=== PATIENT | female | born 2000 | race Caucasian/White ===

== ENCOUNTER 2022-11-15 16:32 | Emergency (ER) | payer MEDICAID, SELFPAY ==
[2022-11-15 16:34] VITALS: BP 119/74; PULSE 81; RESP 16; TEMP 36.1; O2SAT 100; BMI 20.9
[2022-11-15] MEDS: LORazepam 0.5 MG Tablet 0.25 MG PO (17:49)
--- NOTE | 2022-11-15 17:56 | EX.ED.DYSGE1 ---
HPI <JOSIE Galloway - Last Filed: 11/15/22 19:32> History of Present Illness Chief Complaint: Depression Narrative Narrative: Patient is a 22-year-old female with history of depression who has been dealing with depression and suicidal ideation for multiple years. Patient states in the month of October, she went back to school, and developed multiple stressors. She has been trying to find a medication regimen that is working for her. She states that she is very sensitive. She is been trying Paxil and had significant reaction and is now off all medications. Last evening while she was sleeping, she had multiple episodes where she would wake up with suicidal ideation however she would go back to bed. Patient at this time states that she does not want to , she does not want to be admitted, she feels safe at home however she was just overwhelmed did not know what to do. Her is at bedside and agrees that she is safe. Patient denies any other injury [facility] <JOSIE Galloway - Last Filed: 11/15/22 19:32> [facility] Medical History (Updated 11/15/22 @ 19:29 by JOSIE Galloway) PTSD (post-traumatic stress disorder) Home Medications lorazepam 0.5 mg tablet (Ativan) 0.5 mg PO TID PRN anxiety #10 tabs 11/15/22 [Rx Last Taken Unknown] Allergy/AdvReac Type Severity Reaction Status Date / Time SSRI Allergy Intermediate Other Uncoded 11/15/22 16:33 Social History Smoking Status: Never smoker ROS <JOSIE Galloway - Last Filed: 11/15/22 19:32> ROS ED ROS Narrative Constitutional: Negative for fever, chills, weight loss, weakness Eyes: Negative for vision loss, vision change, double vision ENT: Negative for any sore throat, ear pain, congestion Cardiovascular: Negative for any chest pain, tightness, palpitations Respiratory: Negative for any cough, sputum production, hemoptysis, dyspnea, dyspnea on exertion, orthopnea Gastrointestinal: Negative for any abdominal pain, nausea, vomiting, diarrhea, constipation, blood in stool, blood in vomit : Negative for any urinary frequency, dysuria, retention, blood in urine Muscle skeletal: Negative for any muscle joint pain, stiffness, myalgias, arthralgias, neck pain, back pain Neurological: Negative for any headache, syncope, numbness or tingling, dizziness Skin: Negative for any rashes, lumps, itching, abrasions, lacerations Psychiatric: Negative for any homicidal ideation. Positive for stress, anxiety, suicidal thoughts that passed quickly Hematologic: Negative for any easy bruising, excessive bruising, easy bleeding Allergies: Negative for any eczema, hives, rash EXAM <JOSIE Galloway - Last Filed: 11/15/22 19:32> Physical Exam Narrative Exam Narrative: Vital signs reviewed. I spoke with the patient at length, patient does appear anxious however she is alert and orient x4. Patient is aware, polite, and in no distress. She does appear to be anxious however her thoughts are linear and she has a good sense of where she is at. She does not want any admission, I did offer her crisis that she declined. She states that she just felt overwhelmed and needed to come to a safe spot. Patient would like to try something for anxiety. HEET: Head normocephalic atraumatic, TMs clear bilaterally. Posterior pharynx is clear, moist mucous membranes. Nares clear bilaterally. Neck: Supple with no lymphadenopathy or tenderness. No signs of meningismus, negative jolt sign. Cardiac: Regular rate and rhythm no murmurs gallops or rubs, equal peripheral pulses bilaterally. Respiratory: Lungs clear to auscultation bilaterally. No chest tenderness. Abdomen: Soft, nontender, nondistended. No abdominal bruit or pulsatile masses. No hepatosplenomegaly Extremities: No peripheral edema, no signs of gross trauma or deformity. Active full range of motion of all extremities. Neuro: Cranial nerves II through XII intact, no focal neurological deficits. Skin: Clean dry and intact with no rash, purpura, petechiae, vesicles or pustules. Backs/flank: No CVA tenderness, no midline spinal tenderness, no deformity. Psych: Normal mood and affect. No SI, HI or acute psychosis. Const Vital Signs: 11/15/22 16:34 Temperature 96.9 F L Temperature Source Temporal Pulse Rate 81 Respiratory Rate 16 Blood Pressure 119/74 Blood Pressure Mean 89 Pulse Ox 100 Oxygen Delivery Method Room Air <Dr. Igor Jones MD - Last Filed: 11/15/22 20:53> Physical Exam Const Vital Signs: 11/15/22 16:34 Temperature 96.9 F L Temperature Source Temporal Pulse Rate 81 Respiratory Rate 16 Blood Pressure 119/74 Blood Pressure Mean 89 Pulse Ox 100 Oxygen Delivery Method Room Air [facility] <Cleve BurnsJOSIE gonzalez - Last Filed: 11/15/22 19:32> [facility] Treatment and Re-Evaluation :: Patient appears generally well, patient appears nontoxic, vital signs are stable. Patient presents the emergency department for anxiety, depression as well as some suicidal thoughts that came to her while she was sleeping last evening. On initial examination, patient is not suicidal or homicidal. Patient is acting appropriate. She does appear slightly anxious. She will receive 0.25mg of Ativan. Patient was offered to talk to crisis however she states that she does not need to, she does not believe that she is that severe. On reassessment, the patient was doing well. He states the Ativan did help slightly. At this time, there is no evidence suspect the patient suicidal, homicidal. The patient and the patient's feel the patient safe for discharge. They do have follow-up outpatient with psychology as well as her PCP. Patient will be given a short course of Ativan. She will follow-up outpatient <Dr. Igor Jones MD - Last Filed: 11/15/22 20:53> [facility] Narrative Medical decision making narrative: I have personally performed a face to face assessment of the patient and have reviewed the SILVINO Note. I performed a substantive portion of the visit including all aspects of the following. My ricketts findings include: History is remarkable for history of anxiety and depression. Recent she has been waking up feeling anxious with depression and suicidal thoughts. She has no intent on acting on her suicidal thoughts. This is occurred over the past several days to weeks. She is present on no medicine because she has had reaction to multiple antidepressants. Presently she denies headache, visual, ocular auditory symptoms. She denies respiratory or cardiac symptoms. She denies GI symptoms. She denies urologic symptoms. She denies neurologic symptoms. Exam is unremarkable. HEENT exam is unremarkable. Heart lung exam is unremarkable. She is alert oriented x3. She denies homicidal/suicidal thoughts. Affect is flat and mood is slightly depressed. Medical Decision Making suspect there is an anxiety component. She is been instructed follow-up with her therapist and psychiatrist. Has an appointment with her psychiatrist later this month. Other additions or changes: Plan is to discharge with prescription for Ativan. Discharge Plan Triage Chief Complaint: Depression ED Midlevel Provider: Cleve Phillips ED Provider: Igor Jones Dx/Rx/DC Orders Clinical Impression: Anxiety, Depression Instructions: Depression SCI, Depression and the Brain's ..., Anxiety Disorders Tx Prescriptions: New lorazepam [Ativan] 0.5 mg tablet 0.5 mg PO TID PRN (Reason: anxiety) Qty: 10 0RF Rx Instructions: You may take half a tab of 0.5 mg. So a total of 0.25 mg. Primary Care Provider: Ashleigh Stafford NP Referrals: Ashleigh Stafford GED TUTOR, [facility] [Primary Care Provider] - Activity Restrictions/Additional Instructions: Please continue to follow-up with your PCP. Ensure that you follow-up with your psychologist. Again do not give up, there are multiple treatment options. You are doing well. Continue doing what you are doing. Use family and close people around you to help. Disposition Disposition: Home, Self Care Discharge Date/Time: 11/15/22 19:42
== END 2022-11-15 19:42 | disposition home or self-care (01) ==
PROVIDERS: Emergency Provider Emergency Medicine; PCP Registered Nurse; Visit Provider Emergency Medicine
DX: F32.A Depression, unspecified (principal); F41.9 Anxiety disorder, unspecified
CPT/HCPCS: 99283

== ENCOUNTER 2022-12-01 14:36 | Emergency (ER) | payer MEDICAID, SELFPAY ==
[2022-12-01 14:38] VITALS: BP 116/74; PULSE 78; RESP 14; TEMP 36.7; O2SAT 98; BMI 20.7
--- NOTE | 2022-12-01 15:14 | EX.ED.VIS.PS ---
HPI HPI - Psych History of Present Illness Chief Complaint: Mental Health Informant: patient Narrative Narrative: Patient was referred by her counselor for some thoughts about suicide. Patient has been seeing this Same counselor since about eighth grade. She has a history of depression and anxiety. She went back to school in October. It caused significant anxiety and stress so she had stopped. She has been on hydroxyzine as needed. 2 weeks ago she started bupropion. It caused her to be a little tired flulike symptoms and weight loss. But she had some suicidal thoughts before starting that med. They have not worsened. She has had thoughts that she could walk on train tracks near her house or take meds. But she has not acted on this. She has had thoughts in the past also. She does have a positive outlook for the future. 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 She is very busy and active. She still has thoughts of trying to go back to school in the future but understands she needs to get the anxiety and her symptoms calm down quite a bit. She has no physical complaints as of now. She saw a psychiatrist once in her life. Meds were prescribed that made her extremely tired and she did not continue with that arrangement. The Wellbutrin was prescribed by her primary physician. [facility] Medical History Anxiety Depression PTSD (post-traumatic stress disorder) Home Medications bupropion HCl 75 mg tablet mg PO 12/01/22 [History Last Taken 12/01/22] hydroxyzine HCl 10 mg tablet 10 mg PO PRN 12/01/22 [History Last Taken Unknown] Allergy/AdvReac Type Severity Reaction Status Date / Time SSRI Allergy Intermediate Other Uncoded 11/15/22 16:33 Social History Smoking Status: Never smoker ROS ROS ED ROS Narrative A complete review of systems was performed and is negative except as documented in the history of present illness. Some specific details below. Constitutional: No recent fevers or chills. She had some malaise when starting bupropion but that has improved EYE: No visual complaints ENT: No difficulty swallowing. CV: No chest pain or palpitations. Respiratory: No dyspnea. No hemoptysis. No difficulty taking breaths. GI: No nausea vomiting or diarrhea. She did have some weight loss with bupropion initiation. : No frequency dysuria or hematuria. Musculoskeletal: No recent trauma. No pains. Skin: No rash. Nondiaphoretic. Neuro: No weakness or numbness. Endocrine: No polyuria or polydipsia. Psychiatry: See history of present illness. EXAM Physical Exam Narrative Exam Narrative: Patient awake alert no acute distress. HEENT shows no trauma mucous membranes are moist Neck is free range of motion. Cardiorespiratory shows normal pulse easy breathing. Saturations are normal at 98% on room air. Abdomen is not distended no pain or tenderness. Extremities show no rash or trauma. Neurologically she is awake she is alert she is appropriate. Psychiatry: She does not have a flat or depressed affect. She makes good eye contact. She is neatly dressed and groomed. She does seem to have a positive outlook for the future. Const Vital Signs: 12/01/22 14:38 12/01/22 19:12 12/01/22 19:59 Temperature 98.1 F Temperature Source Temporal Pulse Rate 78 79 79 Respiratory Rate 14 18 18 Blood Pressure 116/74 107/69 Blood Pressure Mean 88 81 Pulse Ox 98 100 100 Oxygen Delivery Method Room Air Room Air 12/01/22 20:00 12/01/22 21:22 Temperature Temperature Source Pulse Rate Respiratory Rate 16 16 Blood Pressure Blood Pressure Mean Pulse Ox Oxygen Delivery Method MDM MDM MDM Narrative Medical decision making narrative: Further discussion with the patient, her , social work we have agreed that patient would be served best with stay in the hospital. She has been seeing her counselor as an outpatient but has gotten worse. She has gotten meds and a visit here to the emergency department but has still worsened. She has gotten meds from her primary physician and has still worsened. At this point she is really failed outpatient therapy and does not feel that she is safe to make a safety plan. Patient CBC shows no acute abnormality. Patient's electrolytes are normal other than minimally low potassium at 3.3 that will self-correct. Glucose is also mildly up at 144. This just needs to be rechecked in the future but does not need acute treatment. Patient's alcohol level is negative. Patient's is negative. Patient's urine toxicology screen is negative. Patient is medically cleared for psychiatric evaluation and admission. Patient has been accepted at [facility] by Dr. Arceo Lab Data Attestation: I reviewed the patient's lab results. Labs: Laboratory Results - last 24 hr 12/01/22 16:45 WBC 6.9 RBC 4.42 Hgb 13.4 Hct 40.2 MCV 91.0 MCH 30.3 MCHC 33.3 RDW Std Deviation 42.4 RDW Coeff of Samaria 12.7 Plt Count 331 MPV 10.1 Immature Gran % (Auto) 0.400 Neut % (Auto) 61.0 Lymph % (Auto) 29.1 Juncos % (Auto) 6.9 Eos % (Auto) 2.0 Baso % (Auto) 0.6 Absolute Neuts (auto) 4.2 Absolute Lymphs (auto) 2.01 Nucleated RBC % 0 Sodium 139 Potassium 3.3 L Chloride 108 H Carbon Dioxide 24.0 Anion Gap 7 BUN 12 Creatinine 0.99 Estim Creat Clear Calc 79.64 Est GFR (MDRD) Af Amer 90 Est GFR (MDRD) Non-Af 74 BUN/Creatinine Ratio 12.1 Glucose 144 H Calcium 9.1 Serum , Qual NEGATIVE Urine Opiates Screen NEGATIVE Urine Methadone Screen NEGATIVE Ur Barbiturates Screen NEGATIVE Ur Phencyclidine Scrn NEGATIVE Ur Amphetamines Screen NEGATIVE MDMA (Ecstasy) Screen NEGATIVE U Benzodiazepines Scrn NEGATIVE Urine Cocaine Screen NEGATIVE U Cannabinoids Screen NEGATIVE Ur Drug Screen Comment Ethyl Alcohol < 3.0 Discharge Plan Triage Chief Complaint: Mental Health ED Provider: Bishop Black Dx/Rx/DC Orders Clinical Impression: History of anxiety, Suicide ideation, Failure of outpatient treatment Prescriptions: No Action bupropion HCl 75 mg tablet PO Patient Comments: take 1 tablet by mouth twice a day hydroxyzine HCl 10 mg tablet 10 mg PO PRN Patient Comments: take 1 tablet by mouth every 8 hours if needed for anxiety Primary Care Provider: Ashleigh Stafford NP Referrals: Ashleigh Stafford NP, [facility] [Primary Care Provider] - Disposition Disposition: Psychiatric Hospital or Unit Discharge Location: [facility] Discharge Date/Time: 12/01/22 21:34
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
[2022-12-01 17:02] LABS: Absolute Lymphocyte Count 2.01 X10^3/uL (0.83-4.51); Absolute Neutrophil Count 4.2 X10^3/uL (2.0-7.7); Basophil# 0.04 X10^3/uL; Basophil% 0.6 % (0-1); Eosinophil# 0.14 X10^3/uL; Hematocrit 40.2 % (37-47); Hemoglobin 13.4 g/dL (12.0-15.0); Lymphocyte # 2.01 X10^3/ul (0.83-4.51); Lymphocyte % 29.1 % (19-41); Mean Corp Hgb Conc 33.3 g/dL (32-36); Mean Corpuscular Hgb 30.3 pg (27.0-32.0); Mean Platelet Vol. 10.1 fl (6.2-12.0); Monocyte# 0.48 X10^3/uL; Monocyte% 6.9 % (0-10); NRBC Flagged by Analyzer 0 % (0-5); Neutrophil # 4.21 X10^3/uL (2.7-7.7); Platelet Count 331 K/mm3 (150-450); RBC Distribution Width CV 12.7 % (11.6-14.6); RBC Distribution Width SD 42.4 fl (35.1-43.9); Red Blood Count 4.42 M/mm3 (4.2-5.4); White Blood Count 6.9 K/mm3 (4.4-11.0)
[2022-12-01 17:13] LABS: Amphetamine Urine VISTA NEGATIVE (<1000 ng/mL); Barbiturate Urine VISTA NEGATIVE (< 200 ng/mL); Benzodiazepine Urine VISTA NEGATIVE (< 200 ng/mL); Cocaine Urine VISTA NEGATIVE (< 300 ng/mL); Ecstacy Urine VISTA NEGATIVE (< 500 ng/mL); Methadone Urine VISTA NEGATIVE (< 300 ng/mL); PCP Urine VISTA NEGATIVE (< 25 ng/mL); THC Urine VISTA NEGATIVE (< 50 ng/mL); Vista UDS pH Range 6
[2022-12-01 17:14] LABS: Internal QC Validated? YES +Cl - CLEAR BKGD; Pregnancy, Serum, hCG Quali. NEGATIVE Negative
[2022-12-01 17:17] LABS: Alcohol, Blood (Medical)-Serum < 3.0 mg/dL
[2022-12-01 17:19] LABS: Anion Gap 7 (5-15); BUN 12 mg/dL (7-18); BUN/Creat Ratio 12.1 RATIO (10-20); Calcium,Total 9.1 mg/dL (8.5-10.1); Chloride 108 mmol/L (98-107); Creatinine, Serum 0.99 mg/dL (0.55-1.02); EST Glomerular Filtration Rate 74 mL/min (>60); Est Glom Filt Rate - Afr Amer 90 mL/min (>60); Estimated Creatinine Clearance 79.64 ml/min; Glucose 144 mg/dL (74-106); Potassium 3.3 mmol/L (3.5-5.1); Sodium Level 139 mmol/L (136-145)
[2022-12-01 19:12] VITALS: BP 107/69; PULSE 79; RESP 18; O2SAT 100
--- NOTE | 2022-12-01 19:13 | CM.ED ---
Social Work SW contacted [facility] and [facility] to inquire about bed availability, beds available. Plan: referrals pending at [facility] and [facility] Triny ESTRELLA, DOTNAE
--- NOTE | 2022-12-01 19:45 | CM.ED ---
Social Work Patient was accepted to [facility] by [facility], [address] [id number]. [place] slip needed before transportation is arranged. SW inquired about their programs and insurance coverage. 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 SW met with patient to inform of acceptance to [facility]. SW provided emotional support and reviewed facility information. Patient was appreciative and reports understanding. SW updated care team; [place] attorney to arrange transportation. Plan: [facility] Triny ESTRELLA, DONTAE
[2022-12-01 19:59] VITALS: PULSE 79; RESP 18; O2SAT 100
[2022-12-01 20:00] VITALS: RESP 16
[2022-12-01 21:22] VITALS: RESP 16
== END 2022-12-01 21:34 ==
LOC: ED 16:07
PROVIDERS: Emergency Provider Emergency Medicine; PCP Registered Nurse; Visit Provider Emergency Medicine
DX: F41.9 Anxiety disorder, unspecified (principal); F32.A Depression, unspecified; R45.851 Suicidal ideations; Z79.899 Other long term (current) drug therapy
CPT/HCPCS: 36415; 80048; 80307; 82077; 84703; 85025; 87811; 99285